=== PATIENT | male | born 1965 | race Caucasian/White ===

== ENCOUNTER → 2016-11-03 | Outpatient (CLI) | payer OTHER ==
[~2016-11-03] MED LIST: ANT25 PO; CHLOTAB3 PO; CLON1TAB3 PO; GADAVIST IV PRN; NARA2.5T2 PO; NORT25CA PO; PARO30TA PO; PRAV40TA2 PO; PRLSR20 PO; WARF5TAB90 PO; ZOLP10TA6 PO
--- NOTE | 2016-11-03 09:37 | DIAGNOSTIC IMAGING REPORT ---
Brain and pituitary MRI WITH AND WITHOUT CONTRAST HISTORY: Headache. Ataxia. TECHNIQUE: Multiplanar multisequence MRI of the brain was performed both before and after the intravenous administration of contrast. COMPARISON STUDY: Brain MRI 09/06/2012. FINDINGS: There are no areas of restricted diffusion to suggest acute infarction. The midline structures are intact. There are few retention cysts within the maxillary sinuses which are not significantly changed. The mastoid air cells are clear. The ventricles and sulci are within normal limits for age. There is no mass, hematoma, midline shift. The major vascular flow-voids at the skull base are well maintained. Postcontrast sequences show no areas of abnormal enhancement. The pituitary gland enhances normally. There are no pituitary masses. The pituitary stalk is midline and normal in caliber. IMPRESSION: No acute intracranial abnormality. Normal pituitary gland. Electronically signed by: Gilson Oakley M.D. 11/03/2016 9:35 AM Dictated Date/Time: 11/03/2016 9:25 AM
== END | disposition home or self-care (01) ==
LOC: C.MRI 07:53
PROVIDERS: ATTEND Psychiatry & Neurology Neurology
DX: G11.9 Hereditary ataxia, unspecified (principal); R51 Headache; H54.7 Unspecified visual loss

== ENCOUNTER 2016-11-09 13:58 | Observation (INO) | payer OTHER ==
[~2016-11-09] VITALS: Ht 188 cm; Wt 111.8 kg
[~2016-11-09 13:58] MED LIST changes: -ANT25 PO; -GADAVIST IV PRN; -ZOLP10TA6 PO
[2016-11-09] MEDS ORDERED: ASPIRIN 81 MG CHEW PO STA ×2 (15:21→17:21)
[2016-11-09] MEDS ORDERED: NITROGLYCERIN OINT 2% 1GM PACKET EXT ONE (15:30)
[2016-11-09] MEDS ORDERED: ZOLP10TA6 PO (15:43)
[2016-11-09] MEDS ORDERED: ANT25 PO (15:43)
[2016-11-09 16:04] LABS: BASO % 0.4 %; BASO ABS # 0.03 K/uL (0-0.2); COMPLETE YES; EOS % 1.8 %; HEMATOCRIT 49.7 % (42-52); IG% 0.3 %; LYMPH % 33.7 %; LYMPH ABS # 2.46 K/uL (1.2-3.4); MEAN CELL VOLUME 94.1 fL (80-100); MEAN CORPUSCULAR HEMOGLOBIN 33.5 pg (25-34); MEAN CORPUSCULAR HGB CONC 35.6 g/dl (32-36); MONO % 6.7 %; NEUT % 57.1 %; PLATELET COUNT 237 K/uL (130-400); RED BLOOD COUNT 5.28 M/uL (4.7-6.1); WHITE BLOOD COUNT 7.29 K/uL (4.8-10.8)
--- NOTE | 2016-11-09 16:10 | DIAGNOSTIC IMAGING REPORT ---
CHEST ONE VIEW PORTABLE CLINICAL HISTORY: Atypical chest pain COMPARISON STUDY: 09/26/2012 FINDINGS: The heart is at the upper limits of normal in size. There is no failure. There is no focal pulmonary consolidation. There are no pleural effusions. There are minor basilar atelectatic changes.[ IMPRESSION: AP portable study. Mild basilar atelectasis. Electronically signed by: Porter Ventura M.D. 11/09/2016 4:09 PM Dictated Date/Time: 11/09/2016 4:08 PM
[2016-11-09 16:13] LABS: INR 1.6 (0.9-1.1); PARTIAL THROMBOPLASTIN RATIO 1.6; PROTHROMBIN TIME (PATIENT) 17.6 SECONDS (9.0-12.0)
[2016-11-09 16:27] LABS: BUN/CREATININE RATIO 17.2 (10-20); CALCIUM 9.1 mg/dl (8.5-10.1); CREATININE 1.2 mg/dl (0.60-1.40); POTASSIUM 3.9 mmol/L (3.5-5.1)
[2016-11-09] MEDS ORDERED: MECLIZINE HCL 25 MG TAB PO PRN (17:30)
[2016-11-09] MEDS ORDERED: ONDANSETRON INJ 2 MG/ML 2 ML VIAL IV PRN (17:30)
[2016-11-09] MEDS ORDERED: NITROGLYCERIN 0.4 MG SL PER TAB CHARGE SL PRN (17:30)
[2016-11-09] MEDS ORDERED: ENOXAPARIN 1 MG/KG SQ SCH (17:30)
[2016-11-09] MEDS ORDERED: ACETAMINOPHEN 325 MG TAB PO PRN (17:30)
--- NOTE | 2016-11-09 17:47 | History and Physical ---
History & Physical Date & Time of Service: Nov 09, 2016 at 17:33 Chief Complaint: Chest Pain,Pain Slightly Down Arm Primary Care Physician: Teodoro Montelongo III, M.D. History of Present Illness Source: patient, clinic records, hospital records Patient seen and examined. 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 Patient reports that he developed chest pain last week when he was shoveling snow. He states he went inside but the chest pain continued so he took one of his 's nitros. This alleviated the pain, however the pain returned later that night and has continued consistently since then. He described the pain as crampy in the left chest with a "weird feeling" radiating down the left arm and rates the pain as a 1/10. He denies any associated symptoms including fevers, chills, URI symptoms, SOB, palpitations, nausea, vomiting, diarrhea, dysuria, calf pain and edema. He does not take aspirin at home. He denies ever having similar symptoms and states when he had PEs in the past they did not feel anything like this. He reports a family history of CAD in his father with AMI at age 65. He denies any personal history of heart disease. In the ED BP is elevated, troponin is negative, EKG shows RBBB, INR is 1.6. He received nitropaste and 81mg Aspirin. He reports chest pain has resolved with the nitro. He will be observed for further workup and treatment. Past Medical/Surgical History Medical Problems: (1) Cerebellar ataxia Status: Chronic (2) Chronic anticoagulation Status: Chronic (3) Depression Status: Chronic (4) Gastroesophageal reflux disease Status: Chronic (5) HLD (hyperlipidemia) Status: Chronic (6) Migraines Status: Chronic (7) VTE (venous thromboembolism) Status: Chronic Surgical Problems: (1) H/O colonoscopy Status: Chronic Family History Cancer Heart disease Hypertension Social History Smoking Status: Never Smoker Alcohol Use: none Drug Use: none Marital Status: Housing status: lives with family Occupational Status: employed Immunizations History of Influenza Vaccine: Yes History of Tetanus Vaccine?: Yes History of Pneumococcal: No History of Hepatitis B Vaccine: Unknown Multi-Drug Resistant Organisms History of MDRO: No Allergies Coded Allergies: Erythromycin (Verified Allergy, Unknown, 3/20/17) Valproic Acid (Verified Allergy, Unknown, `, 11/09/16) Ketorolac (Verified Adverse Reaction, Unknown, "DOESN'T WORK", 11/09/16) Morphine (Verified Adverse Reaction, Unknown, REBOUND HEADACHES, 11/09/16) Tromethamine (Verified Adverse Reaction, Unknown, "DOESN'T WORK", 11/09/16) Home Medications Scheduled Naratriptan Hcl (Amerge), 2.5 MG PO DAILY/PRN/UD Nortriptyline (Pamelor), 75 MG PO DAILY Omeprazole (Prilosec), 20 MG PO DAILY Paroxetine Hcl (Paxil), 30 MG PO DAILY Pravastatin Sodium (Pravastatin Sodium), 40 MG PO HS Warfarin Sodium (Coumadin), 5 MG PO 3XWK Warfarin Sodium (Coumadin), 2.5 MG PO 4XWK Zolpidem Tartrate (Zolpidem Tartrate), 10 MG PO HS Scheduled PRN Clonazepam (Klonopin), 1 MG PO QID PRN for Anxiety Meclizine HCl (Meclizine HCl), 25 MG PO TID PRN for Dizziness or Vertigo Review of Systems See above for pertinent positives & negatives. A total of 10 systems reviewed and were otherwise negative. Physical Exam Vital Signs Date Time Temp Pulse Resp B/P Pulse Ox O2 Delivery O2 Flow Rate FiO2 11/09/16 15:31 86 11/09/16 15:29 97 Room Air 11/09/16 15:29 87 16 170/114 96 11/09/16 14:06 36.5 92 18 155/91 95 Room Air General Appearance: + pertinent finding (Pleasant WD/WN 51 year old male lying in bed in NAD ) Head: normocephalic, atraumatic Eyes: PERRL, sclerae normal ENT: hearing grossly normal, pharynx normal Neck: supple, no JVD Respiratory/Chest: chest non-tender, lungs clear, normal breath sounds, no respiratory distress, no accessory muscle use Cardiovascular: regular rate, rhythm, no edema, no gallop, no JVD, no murmur, normal peripheral pulses Abdomen/GI: normal bowel sounds, non tender, soft Back: normal inspection, no muscle spasm Extremities/Musculoskelatal: no calf tenderness, normal capillary refill, no pedal edema Neurologic/Psych: no motor/sensory deficits, alert, oriented x 3 Skin: normal color, warm/dry, no rash Lymphatic: no adenopathy Diagnostics Laboratory Results Results Past 24 Hours Test 11/09/16 15:45 11/09/16 15:50 Range/Units White Blood Count 7.29 4.8-10.8 K/uL Red Blood Count 5.28 4.7-6.1 M/uL Hemoglobin 17.7 14.0-18.0 g/dL Hematocrit 49.7 42-52 % Mean Corpuscular Volume 94.1 80-100 fL Mean Corpuscular Hemoglobin 33.5 25-34 pg Mean Corpuscular Hemoglobin Concent 35.6 32-36 g/dl Platelet Count 237 130-400 K/uL Mean Platelet Volume 10.0 7.4-10.4 fL Neutrophils (%) (Auto) 57.1 % Lymphocytes (%) (Auto) 33.7 % Monocytes (%) (Auto) 6.7 % Eosinophils (%) (Auto) 1.8 % Basophils (%) (Auto) 0.4 % Neutrophils # (Auto) 4.16 1.4-6.5 K/uL Lymphocytes # (Auto) 2.46 1.2-3.4 K/uL Monocytes # (Auto) 0.49 0.11-0.59 K/uL Eosinophils # (Auto) 0.13 0-0.5 K/uL Basophils # (Auto) 0.03 0-0.2 K/uL RDW Standard Deviation 45.8 36.4-46.3 fL RDW Coefficient of Variation 13.3 11.5-14.5 % Immature Granulocyte % (Auto) 0.3 % Immature Granulocyte # (Auto) 0.02 0.00-0.02 K/uL Prothrombin Time 17.6 9.0-12.0 SECONDS Prothromb Time International Ratio 1.6 0.9-1.1 Activated Partial Thromboplast Time 42.0 21.0-31.0 SECONDS Partial Thromboplastin Ratio 1.6 Sodium Level 139 136-145 mmol/L Potassium Level 3.9 3.5-5.1 mmol/L Chloride Level 105 98-107 mmol/L Carbon Dioxide Level 27 21-32 mmol/L Anion Gap 7.0 3-11 mmol/L Blood Urea Nitrogen 21 7-18 mg/dl Creatinine 1.20 0.60-1.40 mg/dl Est Creatinine Clear Calc Drug Dose 96.5 ml/min Estimated GFR () 80.1 Estimated GFR (Non- 69.1 BUN/Creatinine Ratio 17.2 10-20 Random Glucose 74 70-99 mg/dl Calcium Level 9.1 8.5-10.1 mg/dl Bedside Troponin I 0.000 0-0.045 ng/ml Diagnostic Radiology CXR Per radiologist read: IMPRESSION: AP portable study. Mild basilar atelectasis. EKG NSR 94 BPM, QTc 477, RBBB Impression Assessment and Plan 51 year old male presents with persistent chest pain since shoveling snow last week, alleviated by nitro ATYPICAL CHEST PAIN R/O ACS -Observation in tele -First set of CE negative in ED -Risk factors:HLD -Serial Cecilia and EKGs -Fasting lipid panel in AM -Aspirin, Statin daily - will keep on pravastatin d/t history of intolerance on other statins -continue nitro paste -Cardiology consult for further management input appreciated -AHA diet npo after midnight for possible stress test -CBC, PRP, Mg daily -BP slightly elevated but equal bilaterally, monitor H/O VTE -on life long Coumadin, INR 1.6 today was subtherapeutic last month as well -continue Coumadin -add Lovenox bridge -check INR daily HLD -continue Pravastatin -has not tolerated other statins in the past, will therefore not change to lipitor while r/o ACS DEPRESSION -continue Paxil -continue Clonazepam prn GERD -continue PPI H/O MIGRAINES -continue nortriptyline DVT PROPHYLAXIS: Coumadin with Lovenox bridge CODE STATUS: FULL CODE DISPO:observation pending further workup Patient seen in collaboration with Dr. Wellington I have seen, examined and discussed this patient with Flavia Goodwin and I agree with the above note. Patient presents with chest pain, relieved with nitroglycerin. FHx significant for father with CABG. Vitals notable for elevated blood pressure. PE: General- awake; alert; NAD Eyes- EOMI; no scleral icterus Neck- no stridor; trachea midline Chest- no chest wall tenderness to palpation Lungs- CTA bilaterally; no wheezes/crackles Heart- RRR; no m/r/g Abdomen- soft; NTND; nBS Back- no gross abnormalities Extremities- no c/c/e; no deformity Neuro- no focal deficits Skin- no appreciable rash or bruise Labs, imaging and EKG reviewed. Chest pain: Risk factors include FHx. Chest pain relieved with nitro. ACS r/o. Cardiology consult for likely stress testing. Start aspirin. h/o PE: Subtherapeutic INR. Continue warfarin. Lovenox bridge. Agree with remainder of plan as outlined above. VTE Prophylaxis VTE Risk Assessment Done? Y/N: Yes Risk Level: High
--- NOTE | 2016-11-09 17:48 | EMERGENCY ROOM VISIT NOTE ---
History Report prepared by Coleen: Marya Wilks Under the Supervision of: Dr. Delano Bui M.D. First contact with patient: 15:12 Chief Complaint: CHEST PAIN Stated Complaint: CHEST PAIN,PAIN SLIGHTLY DOWN ARM Nursing Triage Summary: Triage NOte: Pt reports left sided chest pain since last wednesday. pt reports pain in left arm. History of Present Illness The patient is a 51 year old male who presents to the Emergency Room with complaints of persistent left sided chest discomfort that started 4 days ago. His symptoms initially started while he was shoveling snow. He describes it as a cramping and jabbing sensation. It does not feel tight or pressure-like. He took one of his 's Nitroglycerin and 4 baby aspirin which improved his pain. Since then, his pain returned and has persisted. He had some shortness of breath while shoveling but has not had any shortness of breath since then. Currently in addition to his chest discomfort, he complains of an aching sensation down his left arm. He has used Bengay on his chest without any relief. He is on Coumadin due to a history of DVT and PE. His current symptoms do not feel similar to previous blood clots. He states that he likely has a clotting disorder which caused the blood clots. He has borderline high cholesterol. No personal history of hypertension. Denies fevers, vomiting, cough , leg swelling, or other complaints. He denies Viagra or Cialis use. Source of History: patient Onset: 4 days ago Position: chest (left) Quality: cramping, other (jabbing) Timing: other (persistent) Associated Symptoms: + SOB (while shoveling - resolved), No cough, No fevers , No vomiting Note: Other symptoms: aching left arm pain Review of Systems See HPI for pertinent positives & negatives. A total of 10 systems reviewed and were otherwise negative. Past Medical & Surgical Medical Problems: (1) Cerebellar ataxia (2) Chronic pain syndrome (3) DVT (deep venous thrombosis) (4) Gastroesophageal reflux disease (5) Narcotic withdrawal (6) Pulmonary embolism Family History Cancer Heart disease Social History Smoking Status: Never Smoker Alcohol Use: none Drug Use: none Marital Status: Occupation Status: employed Current/Historical Medications Scheduled Naratriptan Hcl (Amerge), 2.5 MG PO DAILY/PRN/UD Nortriptyline (Pamelor), 75 MG PO DAILY Omeprazole (Prilosec), 20 MG PO DAILY Paroxetine Hcl (Paxil), 30 MG PO DAILY Pravastatin Sodium (Pravastatin Sodium), 40 MG PO HS Warfarin Sodium (Coumadin), 5 MG PO 3XWK Warfarin Sodium (Coumadin), 2.5 MG PO 4XWK Zolpidem Tartrate (Zolpidem Tartrate), 10 MG PO HS Scheduled PRN Clonazepam (Klonopin), 1 MG PO QID PRN for Anxiety Meclizine HCl (Meclizine HCl), 25 MG PO TID PRN for Dizziness or Vertigo Allergies Coded Allergies: Erythromycin (Verified Allergy, Unknown, 11/09/16) Valproic Acid (Verified Allergy, Unknown, `, 11/09/16) Ketorolac (Verified Adverse Reaction, Unknown, "DOESN'T WORK", 11/09/16) Morphine (Verified Adverse Reaction, Unknown, REBOUND HEADACHES, 11/09/16) Tromethamine (Verified Adverse Reaction, Unknown, "DOESN'T WORK", 11/09/16) Physical Exam Vital Signs Date Time Temp Pulse Resp B/P Pulse Ox O2 Delivery O2 Flow Rate FiO2 11/09/16 15:31 86 11/09/16 15:29 97 Room Air 11/09/16 15:29 87 16 170/114 96 11/09/16 14:06 36.5 92 18 155/91 95 Room Air Physical Exam Constitutional: Vital signs reviewed. Eyes: Pupils are equal round reactive to light. Conjunctiva are noninjected. ENT: Pharynx is clear without erythema or exudate. Mucous membranes are moist. Neck supple without meningeal signs. Respiratory: Clear to auscultation bilaterally. Breath sounds are equal bilaterally. Cardiovascular: Regular rate and rhythm. No rubs or gallops. GI: Soft, nondistended and nontender. Bowel sounds are present. Musculoskeletal: No peripheral edema. No lower extremity tenderness. Integumentary: No cyanosis. Neurological: The patient is awake and alert. No focal deficits. Psychiatric: Normal affect. Medical Decision & Procedures ER Provider Diagnostic Interpretation: Radiology results as stated below per my review and the radiologist's interpretation: CHEST ONE VIEW PORTABLE CLINICAL HISTORY: Atypical chest pain COMPARISON STUDY: 09/26/2012 FINDINGS: The heart is at the upper limits of normal in size. There is no failure. There is no focal pulmonary consolidation. There are no pleural effusions. There are minor basilar atelectatic changes.[ IMPRESSION: AP portable study. Mild basilar atelectasis. Electronically signed by: Porter Ventura M.D. 11/09/2016 4:09 PM Dictated Date/Time: 11/09/2016 4:08 PM Laboratory Results 11/09/16 15:45 Red Blood Count 5.28, Mean Corpuscular Volume 94.1, Mean Corpuscular Hemoglobin 33.5, Mean Corpuscular Hemoglobin Concent 35.6, Mean Platelet Volume 10.0, Neutrophils (%) (Auto) 57.1, Lymphocytes (%) (Auto) 33.7, Monocytes (%) (Auto) 6.7, Eosinophils (%) (Auto) 1.8, Basophils (%) (Auto) 0.4, Neutrophils # (Auto) 4.16, Lymphocytes # (Auto) 2.46, Monocytes # (Auto) 0.49, Eosinophils # (Auto) 0.13, Basophils # (Auto) 0.03 11/09/16 15:45 Test 11/09/16 15:45 11/09/16 15:50 White Blood Count 7.29 K/uL (4.8-10.8) Red Blood Count 5.28 M/uL (4.7-6.1) Hemoglobin 17.7 g/dL (14.0-18.0) Hematocrit 49.7 % (42-52) Mean Corpuscular Volume 94.1 fL (80-100) Mean Corpuscular Hemoglobin 33.5 pg (25-34) Mean Corpuscular Hemoglobin Concent 35.6 g/dl (32-36) Platelet Count 237 K/uL (130-400) Mean Platelet Volume 10.0 fL (7.4-10.4) Neutrophils (%) (Auto) 57.1 % Lymphocytes (%) (Auto) 33.7 % Monocytes (%) (Auto) 6.7 % Eosinophils (%) (Auto) 1.8 % Basophils (%) (Auto) 0.4 % Neutrophils # (Auto) 4.16 K/uL (1.4-6.5) Lymphocytes # (Auto) 2.46 K/uL (1.2-3.4) Monocytes # (Auto) 0.49 K/uL (0.11-0.59) Eosinophils # (Auto) 0.13 K/uL (0-0.5) Basophils # (Auto) 0.03 K/uL (0-0.2) RDW Standard Deviation 45.8 fL (36.4-46.3) RDW Coefficient of Variation 13.3 % (11.5-14.5) Immature Granulocyte % (Auto) 0.3 % Immature Granulocyte # (Auto) 0.02 K/uL (0.00-0.02) Prothrombin Time 17.6 SECONDS (9.0-12.0) Prothromb Time International Ratio 1.6 (0.9-1.1) Activated Partial Thromboplast Time 42.0 SECONDS (21.0-31.0) Partial Thromboplastin Ratio 1.6 Anion Gap 7.0 mmol/L (3-11) Est Creatinine Clear Calc Drug Dose 96.5 ml/min Estimated GFR () 80.1 Estimated GFR (Non- 69.1 BUN/Creatinine Ratio 17.2 (10-20) Calcium Level 9.1 mg/dl (8.5-10.1) Bedside Troponin I 0.000 ng/ml (0-0.045) Laboratory results as reviewed by me. Medications Administered Medications (Trade) Dose Ordered Sig/Adan Route Start Time Stop Time Status Last Admin Dose Admin Aspirin (Aspirin Chew) 81 mg NOW STAT PO 11/09/16 15:21 11/09/16 15:22 DC 11/09/16 15:31 81 MG Nitroglycerin (Nitroglycerin 2% Oint) 1 inch NOW ONCE EXT 11/09/16 15:30 11/09/16 15:31 DC 11/09/16 15:31 1 INCH ECG Indication: chest pain Rate (beats per minute): 94 Rhythm: normal sinus Findings: LPFB, RBBB, no acute ischemic change, no ectopy ED Course 1515: The patient was evaluated in room C3. A complete history and physical exam was performed. 1521: Ordered Aspirin 81 mg PO. 1530: Ordered Nitroglycerin 1 inch EXT. 1618: I reassessed the patient. He said that his chest pain is now resolved. I discussed results with him. He agreed with the treatment plan. 1629: I discussed the case with Flavia Goodwin PA-C - [facility]. The patient will be evaluated for further management. Medical Decision This is a 51-year-old male who presents with chest pain. Differential diagnosis includes unstable angina, UT, pleurisy, pericarditis, pneumonia. I did perform a limited focused review of portions of the patient's old chart on the electronic medical record. The patient has had no recent pertinent visits to this hospital. I did evaluate the patient as noted above. The patient is presenting with exertional chest pain starting after shoveling snow. He had relief of his symptoms after taking nitroglycerin that belonged to his . He is currently having some chest discomfort. He says it radiates into his arm. IV access was established. The patient was placed on a continuous pvc monitor. I did order and personally review the patient's 12-lead EKG and chest x-ray as described above. He does have a bifascicular block on 12 EKG. I did treat him with nitroglycerin paste. I did order and review the patient's blood work as noted in the electronic medical record. His troponin is 0. His INR is subtherapeutic. He states that he feels nothing like when he had his pulmonary embolism. I did reassess the patient. His chest pain is completely resolved. I did discuss the test results with the patient. I did recommend hospitalization for further evaluation. I did discuss case with the hospitalist and rn field case manager. Consults Time Called: 1621 Consulting Physician[facility] Returned Call: [phone] I discussed the case with her. The patient will be evaluated for further management. Impression Primary Impression: Exertional chest pain Additional Impression: Subtherapeutic international normalized ratio (INR) Scribe Attestation The scribe's documentation has been prepared under my direct and personally reviewed by me in its entirety. I confirm that the note above accurately reflects all work, treatment, procedures, and medical decision making performed by me. Departure Information Dispostion Being Evaluated By Hospitalist Referrals Teodoro Montelongo III, M.D. (PCP) Patient Instructions My [facility] Problem Qualifiers
[2016-11-09] MEDS ORDERED: IV FLUIDS COMPLETED PRN (18:00)
[2016-11-09] MEDS ORDERED: ENOXAPARIN 120 MG/0.8 ML SYR SQ ONE (18:15)
[2016-11-09 19:10] VITALS: BP 152/84; PULSE 84; TEMP 37; O2SAT 96; Ht 188 cm; Wt 111.8 kg
[2016-11-09] MEDS: CLONAZEPAM 1 MG TAB PO PRN (19:22)
[2016-11-09 19:57] VITALS: BP 120/73; PULSE 122; TEMP 36.6; O2SAT 91
[2016-11-09] MEDS ORDERED: SODIUM CHLORIDE 0.9% 1000ML 1,000 ML IV STA (20:23)
[2016-11-09] MEDS ORDERED: LORAZEPAM INJ 1 MG in SYRINGE 0.5 ML IV PRN (20:30)
[2016-11-09] MEDS: LORAZEPAM 2 MG/ML 1 ML VIAL IV PRN (20:59)
[2016-11-09] MEDS ORDERED: PRAVASTATIN SOD 40 MG TAB PO SCH (21:00)
[2016-11-09] MEDS ORDERED: ZOLPIDEM TARTRATE 10 MG TAB PO SCH (21:00)
[2016-11-09] MEDS: NITROGLYCERIN OINT 2% 1GM PACKET EXT SCH (21:59)
[2016-11-10] VITALS: BP 142/87; PULSE 83; TEMP 36.6; O2SAT 98
[2016-11-10] MEDS: LORAZEPAM 2 MG/ML 1 ML VIAL IV PRN ×2 (00:51→12:45)
[2016-11-10 04:00] VITALS: BP 148/79; PULSE 81; TEMP 36.8; O2SAT 97
[2016-11-10] MEDS: NITROGLYCERIN OINT 2% 1GM PACKET EXT SCH (04:03)
[2016-11-10 04:08] LABS: HEMATOCRIT 44.4 % (42-52); MEAN CELL VOLUME 92.1 fL (80-100); MEAN CORPUSCULAR HGB CONC 34.7 g/dl (32-36); MEAN PLATELET VOLUME 9.6 fL (7.4-10.4); PLATELET COUNT 238 K/uL (130-400); RED BLOOD COUNT 4.82 M/uL (4.7-6.1); WHITE BLOOD COUNT 7.22 K/uL (4.8-10.8)
[2016-11-10 04:19] LABS: INR 1.8 (0.9-1.1); PROTHROMBIN TIME (PATIENT) 19.2 SECONDS (9.0-12.0)
[2016-11-10 04:31] LABS: BLOOD UREA NITROGEN 17 mg/dl (7-18); BUN/CREATININE RATIO 15.4 (10-20); CALCIUM 8.2 mg/dl (8.5-10.1); CARBON DIOXIDE 27 mmol/L (21-32); CHLORIDE 107 mmol/L (98-107); GLUCOSE 85 mg/dl (70-99); SODIUM 141 mmol/L (136-145)
[2016-11-10 04:35] LABS: CHOLESTEROL 172 mg/dl (0-200); CHOLESTEROL/HDL RATIO 6.1; HDL CHOLESTEROL 28 mg/dl; LDL CHOLESTEROL CALCULATED 88 mg/dl; TRIGLYCERIDES 279 mg/dl (0-150); VERY LOW DENSITY LIPOPROT CALC 56 mg/dl
[2016-11-10 05:50] LABS: POTASSIUM 4.1 mmol/L (3.5-5.1)
[2016-11-10 06:01] LABS: MAGNESIUM 2.3 mg/dl (1.8-2.4)
[2016-11-10] MEDS ORDERED: ENOXAPARIN 120 MG/0.8 ML SYR SQ SCH (07:00)
[2016-11-10 07:46] VITALS: BP 109/73; PULSE 82; TEMP 36.7; O2SAT 95
[2016-11-10] MEDS: NORTRIPTYLINE HCL 25 MG CAP PO SCH ×2 (08:49→08:56)
[2016-11-10] MEDS: PAROXETINE 30 MG TAB PO SCH ×2 (08:49→08:55)
[2016-11-10] MEDS ORDERED: ASPIRIN 81 MG ECTAB PO SCH (09:00)
[2016-11-10] MEDS ORDERED: PANTOprazole SOD 40 MG TAB PO SCH (09:00)
[2016-11-10] MEDS: CLONAZEPAM 1 MG TAB PO PRN (09:01)
[2016-11-10] MEDS ORDERED: METOPROLOL TARTRATE 1 MG/ML VIAL ONE (10:08)
[2016-11-10] MEDS ORDERED: ATROPINE SULFATE 0.1 MG/ML 5ML SYR ONE (10:08)
[2016-11-10] MEDS ORDERED: DOBUTamine HCL 12.5 MG/ML 20 ML VIAL ONE (10:08)
[2016-11-10] MEDS ORDERED: PERFLUTREN LIPID MICROSPHERE (DEFINITY) IV ONE (10:53)
[2016-11-10 11:24] VITALS: BP_SYST 152; BP_SYST 162; BP_DIAS 87; BP_DIAS 98; PULSE 84; PULSE 86; O2SAT 96
--- NOTE | 2016-11-10 11:43 | CARDIOLOGY CONSULTATION ---
DATE OF CONSULTATION: 11/10/2016 DATE OF CONSULTATION: 11/10/2016. HISTORY OF PRESENT ILLNESS: Woodrow Stanley is a 51-year-old male seen in cardiology consultation per the request of Flavia Goodwin PA-C for the evaluation of chest discomfort. The patient presented via the Emergency Room overnight last night complaining of chest discomfort that started approximately a week ago when he was shoveling snow after a heavy snow storm. He notes that he has a problem with exertional ataxia and follows with neurology for this. He therefore has not been exercising routinely and he notes that he is deconditioned. He notes that he performed a significant amount of heavy exertion while shoveling snow. He subsequently developed left-sided chest discomfort and pain down his left arm. He took one of his spouses nitroglycerin tablets and he felt that this made it better. The pain, however, has waxed and waned to a very mild degree at rest for the last 1 week's time. He subsequently presented to the Emergency Room yesterday. He received a dose of sublingual nitroglycerin and subjectively he felt that this made his discomfort better. EKG upon presentation revealed sinus rhythm with right bundle branch block, left posterior fascicular block morphology, and no significant ST changes. The patient has a chronic history of right bundle branch block. Repeat EKG today revealed right bundle branch block without the left posterior fascicular block and no significant repolarization abnormalities. His cardiac enzymes have been negative on a serial basis. PAST MEDICAL HISTORY: 1. Cerebellar ataxia. 2. 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 3. Depression. 4. Dyslipidemia. 5. Migraine headache syndrome. PAST SURGICAL HISTORY: History of colonoscopy. FAMILY HISTORY: The patient's mother had no history of coronary heart disease. His father had coronary artery bypass grafting at age 65. He had a maternal and paternal grandmother each of whom of suspected myocardial infarction. There is no history of ischemic heart disease in his siblings. SOCIAL HISTORY: He is a nonsmoker. He is and lives with his family. ALLERGIES: 1. ERYTHROMYCIN. 2. VALPROIC ACID. 3. KETOROLAC. 4. MORPHINE. 5. TROMETHAMINE. HOME MEDICATIONS: Amerge 2.5 mg daily as needed, nortriptyline 75 mg by mouth daily, Prilosec 20 mg by mouth daily, Paxil 30 mg by mouth daily, pravastatin 40 mg by mouth daily at bedtime, Coumadin 5 mg alternating with 2.5 mg, and Ambien 10 mg by mouth daily at bedtime. Clonazepam 1 mg by mouth q. 6 hours as needed for anxiety, meclizine 25 mg by mouth 3 times per day as needed for dizziness, vertigo. REVIEW OF SYSTEMS: A 10-point review of systems was reviewed and is negative with the exception of that noted above. PHYSICAL EXAMINATION: VITAL SIGNS: Temperature 36.7, heart rate 82, blood pressure 109/73, pulse oximetry 95% on room air, respiratory rate 16. GENERAL APPEARANCE: Awake and oriented x3 in no acute distress. HEAD, EYES, EARS, NOSE, AND THROAT: Extraocular muscles were intact. Pupils equal and reactive to light. NECK EXAMINATION: No bruits, no cervical lymphadenopathy. CARDIOVASCULAR EXAMINATION: Regular rate. No murmurs, rubs or gallops. ABDOMEN: Positive bowel sounds. Soft, nontender, nondistended. EXTREMITIES: No clubbing, cyanosis or edema. NEUROLOGIC: No focal deficits. DIAGNOSTIC DATA: EKG tracings as noted above. Troponin has been negative on a serial basis with negative results yesterday at 1550, again at 2150 overnight last night and at 0350 in the morning. His total cholesterol is 172, calculated LDL cholesterol is 88 mg per deciliter, hemoglobin 15.4, platelet count 238. INR 1.8. Sodium 141, potassium 4.1, BUN 17, creatinine 1.1. A dobutamine stress echocardiogram was performed under my direct supervision. The patient's wall motion was normal at rest. The EKG and echocardiographic response to pharmacologic stress were appropriate with no evidence of resting or inducible ischemia. Occasional PVCs were noted with dobutamine infusion. FINAL IMPRESSION: A 51-year-old male. 1. Chest discomfort with radiation down the left arm. 2. History of dyslipidemia. 3. Family history of senile coronary artery disease. DISCUSSION AND RECOMMENDATIONS: The patient's overall discomfort is somewhat atypical for angina as he has had pain that has waxed and waned to a very mild degree at rest over 1 week that started after significant physical exertion. He had left-sided chest discomfort and pain that radiates down his left arm. His cardiac enzymes and EKG were negative with findings of chronic left bundle branch block which is a chronic finding for him. He had a nonischemic response to dobutamine stress echocardiogram. He was unable to exercise due to his history of ataxia. 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 Recommend that the patient is discharged on his prior to hospital medications including pravastatin. If his discomfort does not improve, he may need additional imaging of his cervical spine for arthritis. I think he can follow up with his primary care doctor regarding this. 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 If he complains of palpitations in the future, would have low threshold for starting low dose beta carmine such as metoprolol tartrate 12.5 mg b.i.d., but at present I do not think this is necessary unless he develops more significant symptoms of palpitations. ALEXA
[2016-11-10 12:00] VITALS: BP 114/74; PULSE 55; TEMP 36.4; O2SAT 92
--- NOTE | 2016-11-10 12:20 | DOBUTAMINE ECHO ---
*NOTICE TO RECEIVING CONSTITUTION PARTY AGENCY This information is strictly Confidential and protected under [place] law. [place] law prohibits you from making any further disclosure of this information unless further disclosure is expressly permitted by the written consent of the person to whom it pertains or is authorized by law. A general authorization for the release of medical or other information is not sufficient for this purpose. Hospital accepts no responsibility if the information is made available to any other person, INCLUDING THE PATIENT. Interpretation Summary * The study was technically adequate. * -- Conclusions -- * STRESS STUDY: * Normal pharmacologic stress echocardiogram. * No echocardiographic or ECG evidence of myocardial ischemia having achieved heart rate adequate for diagnostic purposes. Procedure Details * DOBUTAMINE ECHO, CPT#57998 * ECHO DOPPLER, CPT #01461 * ECHO COLOR FLOW, CPT #75387 * A contrast injection of Definity was performed to improve assessment of LV function. * Contrast was injected into an intravenous site in the left arm. * One vial of Definity ultrasound contrast was diluted in normal saline to a total volume of 10 ml. A total of '5' ml of solution was administered during imaging. * Lot # [id number] of Definity utilized for procedure. * Expiration date DEC 08. * The attending nurse who injected the contrast agent was NISHANT CHICAS CPL, RN. * ECHOEX, CPT #03260 Left Ventricle * The left ventricle is normal in size. * There is normal left ventricular wall thickness. * Left ventricular systolic function is normal. * Ejection Fraction = 55-60%. * Resting wall motion: Normal. Stress wall motion: Appropriate increase in Left ventricular systolic function and decrease in cavity size. No stress induced segmental wall motion abnormalities. Right Ventricle * The right ventricle is normal in size and function. Atria * The left atrial size is normal. * Right atrial size is normal. * No ASD detected; PFO is not assessed. Mitral Valve * The mitral valve is normal. * There is no mitral valve stenosis. * There is trace mitral regurgitation. Tricuspid Valve * The tricuspid valve is normal. * There is no tricuspid stenosis. * There is trace tricuspid regurgitation. Aortic Valve * The aortic valve is trileaflet. * No hemodynamically significant valvular aortic stenosis. * No aortic regurgitation is present. Pulmonic Valve * The pulmonic valve is not well visualized. Great Vessels * The aortic root is normal size. Pericardium * There is no pericardial effusion. Stress Parameters * The baseline ECG reveals normal sinus rhythm with RBBB. * The stress ECG response was normal * Frequent PVCs were noted with peak pharmacologic stress that resolved when dobutamine infuction was discontinued. * The stress portion of this study was personally supervised by the undersigned interpreting physician. * Rest heart rate was '84' BPM. * Rest blood pressure was '132/96' * Maximum heart rate achieved was 148 bpm. * Maximum heart rate was 88 % of maximum age-predicted heart rate. * Maximum blood pressure was '171/58' * Maximum Dobutamine infusion rate was '50' mcg/kg/min. * A total of 0.25 mg of intravenous Atropine was used to supplement Dobutamine for heart rate response. * Dobutamine infusion was terminated due to end of protocol/maximum medication doses * A total of 10.0 mg of IV Metoprolol was administered to reverse Dobutamine-induced tachycardia. Left Ventricular Diastolic Function * Grade I diastolic dysfunction, (abnormal relaxation pattern). MMode 2D Measurements and Calculations IVSd 1.0 cm IVSs 1.7 cm LVIDd 4.0 cm LVIDs 2.6 cm LVPWd 1.3 cm LVPWs 1.6 cm IVS/LVPW 0.84 FS 33.2 % EDV(Teich) 68.4 ml ESV(Teich) 25.7 ml EF(Teich) 62.4 % EDV(cubed) 62.2 ml ESV(cubed) 18.5 ml EF(cubed) 70.2 % % IVS thick 60.0 % % LVPW thick 24.8 % LV mass(C)d 153.0 grams LV mass(C)dI 64.6 grams/m\S\2 LV mass(C)s 154.7 grams LV mass(C)sI 65.3 grams/m\S\2 SV(Teich) 42.7 ml SI(Teich) 18.0 ml/m\S\2 SV(cubed) 43.7 ml SI(cubed) 18.4 ml/m\S\2 Ao root diam 3.3 cm Ao root area 8.3 cm\S\2 LA dimension 3.4 cm LA/Ao 1.0 LVOT diam 2.0 cm LVOT area 3.1 cm\S\2 LVAd ap4 32.0 cm\S\2 LVLd ap4 8.0 cm EDV(MOD-sp4) 104.4 ml EDV(sp4-el) 109.0 ml LVAs ap4 20.3 cm\S\2 LVLs ap4 7.0 cm ESV(MOD-sp4) 50.9 ml ESV(sp4-el) 50.1 ml EF(MOD-sp4) 51.3 % EF(sp4-el) 54.0 % LVAd ap2 38.6 cm\S\2 LVLd ap2 9.1 cm EDV(MOD-sp2) 132.7 ml EDV(sp2-el) 139.4 ml LVAs ap2 22.0 cm\S\2 LVLs ap2 7.3 cm ESV(MOD-sp2) 55.1 ml ESV(sp2-el) 56.4 ml EF(MOD-sp2) 58.4 % EF(sp2-el) 59.6 % LVLd %diff 12.3 % EDV(MOD-bp) 126.4 ml LVLs %diff 4.6 % ESV(MOD-bp) 53.9 ml EF(MOD-bp) 57.4 % SV(MOD-sp4) 53.5 ml SI(MOD-sp4) 22.6 ml/m\S\2 SV(MOD-sp2) 77.5 ml SI(MOD-sp2) 32.7 ml/m\S\2 SV(MOD-bp) 72.5 ml SI(MOD-bp) 30.6 ml/m\S\2 SV(sp4-el) 58.9 ml SI(sp4-el) 24.9 ml/m\S\2 SV(sp2-el) 83.0 ml SI(sp2-el) 35.1 ml/m\S\2 Doppler Measurements and Calculations MV E max rd 63.2 cm/sec MV A max rd 68.1 cm/sec MV E/A 0.93 MV P1/2t max rd 74.7 cm/sec MV P1/2t 52.0 msec MVA(P1/2t) 4.2 cm\S\2 MV dec slope 420.2 cm/sec\S\2 MV dec time 0.16 sec Ao V2 max 90.9 cm/sec Ao max PG 3.3 mmHg Ao max PG (full) 0.51 mmHg DORINDA(V,A) 2.8 cm\S\2 DORINDA(V,D) 2.8 cm\S\2 LV V1 max PG 2.8 mmHg LV V1 max 84.2 cm/sec PA V2 max 135.7 cm/sec PA max PG 7.4 mmHg
--- NOTE | 2016-11-10 13:37 | Discharge Instructions ---
Discharge Instructions Date of Service Nov 10, 2016. Admission Reason for Admission: Chest Pain Discharge Discharge Diagnosis / Problem: Atypical chest pain Discharge Goals Goal(s): Prevent Disease Progression Activity Recommendations Activity Limitations: resume your previous activity . Instructions / Follow-Up Instructions / Follow-Up Please continue all medications as previously instructed with no changes. You have a follow-up appointment with your PCP office on 11/16 at 11:10am with Dr. Montelongo. Please bring all paperwork from this hospitalization with you to the appointment. Your cholesterol was checked and triglycerides were found to be elevated. I would recommend repeating this fasting study as an outpatient under the direction of your PCP. You were noted to have multiple PVCs on the heart monitor overnight. Should you have palpitations at home, please see your physician to discuss options for treatment. It was a pleasure taking care of you! Call if you have any questions or problems. You can reach a [facility] hospitalist on duty at [facility] 24 hours a day by calling [phone]. Take care of yourself. Michelle Cochran DO [facility] Hospitalist Current Hospital Diet Patient's current hospital diet: AHA Diet (Heart Healthy) Discharge Diet Recommended Diet: Regular Diet Procedures Procedures Performed: Dobutamine Stress Echo-negative for inducible ischemia Pending Studies Studies pending at discharge: no Laboratory Results Lipid Panel Test 11/10/16 03:50 Range/Units Triglycerides Level 279 H 0-150 mg/dl Cholesterol Level 172 0-200 mg/dl HDL Cholesterol 28 mg/dl Cholesterol/HDL Ratio 6.1 LDL Cholesterol, Calculated 88 mg/dl Medical Emergencies . Who to Call and When: Medical Emergencies: If at any time you feel your situation is an emergency, please call 911 immediately. . Non-Emergent Contact Non-Emergency issues call your: Primary Care Provider . . "Provider Documentation" section prepared by Michelle Cochran. VTE Core Measure Inpt VTE Proph given/why not?: Warfarin (Coumadin)
[2016-11-10 15:36] VITALS: BP 114/74; PULSE 55; TEMP 36.4; O2SAT 92
[2016-11-10] MEDS ORDERED: WARFARIN SOD 2.5 MG TAB PO SCH (16:00)
[2016-11-11] MEDS ORDERED: WARFARIN SOD 5 MG TAB PO SCH (16:00)
--- NOTE | 2016-11-17 21:42 | Discharge Summary ---
Discharge Summary Date of Service Nov 17, 2016. Discharge Summary Admission Date: Nov 09, 2016 at 17:23 Discharge Date: Nov 10, 2016 Discharge Disposition: Home Principal Diagnosis: Atypical chest pain Procedures: Dobutamine stress echo-11/09 Vaccinations: None. Consultations: Cardiology Medication Reconciliation Continued Medications: Clonazepam (Klonopin) 1 Mg Tab 1 MG PO QID PRN for Anxiety, 0 Refills Meclizine HCl (Meclizine HCl) 25 Mg Tab 25 MG PO TID PRN for Dizziness or Vertigo, #100 Naratriptan Hcl (Amerge) 2.5 Mg Tab 2.5 MG PO DAILY/PRN/UD Nortriptyline (Pamelor) 25 Mg Cap 75 MG PO DAILY, CAP Omeprazole (Prilosec) 20 Mg Capcr 20 MG PO DAILY, CAP Paroxetine Hcl (Paxil) 30 Mg Tab 30 MG PO DAILY, TAB Pravastatin Sodium (Pravastatin Sodium) 40 Mg Tab 40 MG PO HS for 90 Days, #90 TAB 1 Refill Warfarin Sodium (Coumadin) 5 Mg Tab 5 MG PO 3XWK, TAB EVERY WEDNESDAY/WEDNESDAY/WEDNESDAY Warfarin Sodium (Coumadin) 5 Mg Tab 2.5 MG PO 4XWK for 90 Days, #90 TAB 1 Refill EVERY WEDNESDAY/WEDNESDAY/WEDNESDAY/WEDNESDAY Zolpidem Tartrate (Zolpidem Tartrate) 10 Mg Tab 10 MG PO HS, #30 Admission Information HPI (per Admitting provider): Patient seen and examined. 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 Patient reports that he developed chest pain last week when he was shoveling snow. He states he went inside but the chest pain continued so he took one of his 's nitros. This alleviated the pain, however the pain returned later that night and has continued consistently since then. He described the pain as crampy in the left chest with a "weird feeling" radiating down the left arm and rates the pain as a 1/10. He denies any associated symptoms including fevers, chills, URI symptoms, SOB, palpitations, nausea, vomiting, diarrhea, dysuria, calf pain and edema. He does not take aspirin at home. He denies ever having similar symptoms and states when he had PEs in the past they did not feel anything like this. He reports a family history of CAD in his father with AMI at age 65. He denies any personal history of heart disease. In the ED BP is elevated, troponin is negative, EKG shows RBBB, INR is 1.6. He received nitropaste and 81mg Aspirin. He reports chest pain has resolved with the nitro. He will be observed for further workup and treatment. Physical Exam (per Admitting): General Appearance: + pertinent finding (Pleasant WD/WN 51 year old male lying in bed in NAD ) Head: normocephalic, atraumatic Eyes: PERRL, sclerae normal ENT: hearing grossly normal, pharynx normal Neck: supple, no JVD Respiratory/Chest: chest non-tender, lungs clear, normal breath sounds, no respiratory distress, no accessory muscle use Cardiovascular: regular rate, rhythm, no edema, no gallop, no JVD, no murmur , normal peripheral pulses Abdomen/GI: normal bowel sounds, non tender, soft Back: normal inspection, no muscle spasm Extremities/Musculoskelatal: no calf tenderness, normal capillary refill, no pedal edema Neurologic/Psych: no motor/sensory deficits, alert, oriented x 3 Skin: normal color, warm/dry, no rash Lymphatic: no adenopathy Hospital Course Chest pain with exertion while shoveling snow, better with nitro. Nitro was given in the ER which improved the pain. EKG revealed SR with no significant ST changes. Serial cardiac enzymes were checked and were negative. Cardiology was consulted and a dobutamine stress echocardiogram was performed and revealed no evidence of resting or inducible ischemia. The clinical picture was most consistent with musculoskeletal strain with a possible superimposed cervical radiculopathy. Of note, PVCs were noted with dobutamine infusion. Per Cardiology, there would be a low threshold for starting a low dose beta carmine , however, this was not recommended at this time. Total time spent on discharge = 60 minutes This includes examination of the patient, discharge planning, medication reconciliation, and communication with other providers. Discharge Instructions Discharge Instructions Date of Service Nov 10, 2016. Admission Reason for Admission: Chest Pain Discharge Discharge Diagnosis / Problem: Atypical chest pain Discharge Goals Goal(s): Prevent Disease Progression Activity Recommendations Activity Limitations: resume your previous activity . Instructions / Follow-Up Instructions / Follow-Up Please continue all medications as previously instructed with no changes. You have a follow-up appointment with your PCP office on 11/16 at 11:10am with Dr. Montelongo. Please bring all paperwork from this hospitalization with you to the appointment. Your cholesterol was checked and triglycerides were found to be elevated. I would recommend repeating this fasting study as an outpatient under the direction of your PCP. You were noted to have multiple PVCs on the heart monitor overnight. Should you have palpitations at home, please see your physician to discuss options for treatment. It was a pleasure taking care of you! Call if you have any questions or problems. You can reach a [facility] hospitalist on duty at [facility] 24 hours a day by calling [phone]. Take care of yourself. Michelle Cochran DO [facility] Hospitalist Current Hospital Diet Patient's current hospital diet: [facility] Diet (Heart Healthy) Discharge Diet Recommended Diet: Regular Diet Procedures Procedures Performed: Dobutamine Stress Echo-negative for inducible ischemia Pending Studies Studies pending at discharge: no Laboratory Results Lipid Panel Test 11/10/16 03:50 Range/Units Triglycerides Level 279 H 0-150 mg/dl Cholesterol Level 172 0-200 mg/dl HDL Cholesterol 28 mg/dl Cholesterol/HDL Ratio 6.1 LDL Cholesterol, Calculated 88 mg/dl Medical Emergencies . Who to Call and When: Medical Emergencies: If at any time you feel your situation is an emergency, please call 911 immediately. . Additional Copies To Teodoro Montelongo III, M.D.
== END 2016-11-10 15:45 | disposition home or self-care (01) ==
LOC: ENRESERVTM → ENRESERVDT → C.EDB 14:00 → C.2T 17:23
PROVIDERS: ADMIT Internal Medicine; ATTEND Hospitalist
DX: R07.89 Other chest pain (principal); R79.1 Abnormal coagulation profile; G11.9 Hereditary ataxia, unspecified; F32.9 Major depressive disorder, single episode, unspecified; E78.5 Hyperlipidemia, unspecified; K21.9 Gastro-esophageal reflux disease without esophagitis; Z86.711 Personal history of pulmonary embolism; Z79.01 Long term (current) use of anticoagulants; Z88.5 Allergy status to narcotic agent; Z88.1 Allergy status to other antibiotic agents; Z86.718 Personal history of other venous thrombosis and embolism; Z82.49 Family history of ischemic heart disease and other diseases of the circulatory system; Z79.899 Other long term (current) drug therapy